=== PATIENT | male | born 1950 | race Caucasian/White ===

== ENCOUNTER 2018-07-16 09:04 | Outpatient (CLI) | payer MEDICARE, BC ==
[~2018-07-16 09:04] MED LIST: Iopamidol 370 76% 100 ML VIAL ONE
--- NOTE | 2018-07-16 23:17 | CT ---
CT ABDOMEN AND PELVIS WITH CONTRAST 07/16/[address] of the abdomen and pelvis was performed with oral and IV contrast for evaluation of chronic diarrhea. Axial slices were acquired, then coronal reconstructions were later done. The lung bases are clear. The liver is normal in size and appearance. There is a calcified granuloma in the right lobe. There is a 1.6 cm lucency near the tabatha hepatis that is probably a small cyst. Th e spleen and pancreas were unremarkable in appearance. A rounded area near the neck of the gallbladde r is thought to be more likely due to a fold in the neck than a stone. The adrenal glands and kidneys showed no acute findings. There is partial calcification of the abdominal aorta, but no sign of aneu rysm. The bowel was completely unremarkable in appearance. There were no thickened loops of bowel. There we re no inflammatory changes in or around the bowel. The appendix appears normal. There were no signifi cant number of diverticula. No free air or free fluid was seen. CT of the pelvis shows some moderate prostatic enlargement. The gland measures 5.8 cm in diameter. No free fluid was evident. The only area of bowel in question in this region was the junction of the lo wer sigmoid/upper rectum. I cannot tell if there is some thickening or narrowing here or if this area was simply not very distended. If endoscopy of this area has not been done recently, it might be con sidered just to clear it. IMPRESSION: 1. No acute abdominal or pelvic findings. 2. Prostatic enlargement. 3. Equivocal wall thickening of the upper rectum/sigmoid junction. Direct visualization would be needed to tell if this is abnormal or just merely collapsed mucosa. Code T POS: HOME
== END 2018-07-16 09:05 | disposition home or self-care (01) ==
LOC: BURCT 09:04
PROVIDERS: ATTEND Internal Medicine Gastroenterology
DX: K52.9 Noninfective gastroenteritis and colitis, unspecified (principal); N40.0 Benign prostatic hyperplasia without lower urinary tract symptoms; K62.89 Other specified diseases of anus and rectum
CPT/HCPCS: 74177